=== PATIENT | male | born 1960 | race Caucasian/White ===

== ENCOUNTER 2017-03-30 11:26 | Observation (INO) ==
--- NOTE | 2017-03-30 11:58 | Emergency Department Note ---
Disposition Clinical Impression: Left facial numbness Disposition: Admitted As Inpatient Condition: Good Time of Disposition: 14:14 Neuro HPI - General Chief Complaint: ED Neuro Symptoms/Deficit Stated Complaint: Left side facial numbness x 2 days Time Seen by Provider: 03/30/17 11:35 Source: patient Limitations: no limitations Nursing Notes Reviewed: Yes Vital Signs Reviewed: Yes - History of Present Illness HPI Narrative: Mr. Garrison, 56-year-old male, presents from home for evaluation of left-sided facial tingling and paresthesias. Onset 2 days ago. They have neither improved nor worsened. This sensation was preceded by a right temporal sharp stabbing headache which lasted several minutes and spontaneously resolved. Patient does not have a history of headache or migraine. The last time he had a similar headache was prior to his CVA in 2011. PMH: CVA 2011 with sequelae of left lower extremity paresthesias and weakness. Diabetes type 2 on 2 oral anti-hyperglycemics, hypertension, hyperlipidemia, GERD Antiplatelet: Aspirin, Plavix ROS: Positive: As above Negative: Headache, changes in vision, fever, chills, neck pain, chest pains, palpitations, back pains, abdominal pains, unusual weakness, unusual numbness or tingling of his extremities, , dysphagia, dysarthria, aphasia. - Related Data Home Medications: Home Medications Medication Instructions Recorded Confirmed Clopidogrel [Plavix] 75 mg PO DAILY 07/08/15 03/30/17 Lisinopril [Zestril] 20 mg PO DAILY 07/08/15 03/30/17 Pioglitazone HCl [Actos] 45 mg PO DAILY 07/08/15 03/30/17 Simvastatin [Zocor] 40 mg PO DAILY 07/08/15 03/30/17 Nitroglycerin [Nitrostat] 0.4 mg SL AD PRN 10/20/15 03/30/17 Metoprolol [Lopressor] 12.5 mg PO BID 03/17/16 03/30/17 Diclofenac Sodium [Voltaren] 1 appl TP QID PRN 12/06/16 03/30/17 Isosorbide MONOnitrate (24 HR) 30 mg PO DAILY 12/06/16 03/30/17 [Imdur] Loratadine [Allergy Relief] 10 mg PO DAILY 12/06/16 03/30/17 Previous Rx's Medication Instructions Recorded Metformin HCl [Metformin HCl ER] 750 mg PO DAILY #0 07/08/15 Aspirin 81 mg PO DAILY 30 Days tab.chew 07/18/15 Allergies/Adverse Reactions: Allergies Allergy/AdvReac Type Severity Reaction Status Date / Time No Known Allergies Allergy Verified 03/30/17 11:33 All systems ED: reviewed and negative except as stated. Review of Systems: As Per HPI Past Medical History - Past Medical History Medical history: Reports: CVA, diabetes, GERD, hyperlipidemia, hypertension, liver disease, SVT Surgical history: Reports: other Psychiatric history: Reports: anxiety, depression - Social History Smoking Status: Former smoker Smokeless Tobacco Status: No Alcohol use: Reports: none Drug use: Reports: none Physical Exam Vital Signs Reviewed General: Patient is alert, oriented, and in no acute distress. HEENT: No facial asymmetry. Head is normocephalic and atraumatic. PERRLA, EOMI. oral mucosa moist. Trachea midline. Cardiovascular: Heart regular rate and rhythm without clicks, rubs, gallops, or murmurs. No JVD. PMI nondisplaced. Respiratory: Symmetric chest rise with good respiratory effort. Bilateral breath sounds are clear without wheezing, crackles, or rhonchi. Abdomen: Bowel sounds present normoactive x-4 quadrants. Abdomen is soft, nondistended, and nontender. No organomegaly noted. Musculoskeletal: Muscle strength 4/5 in left upper and lower extremity which is baseline per patient. Neuro: No deficit of facial motor function; no facial asymmetry. Decreased sensation on the left side of his face in the distribution of cranial nerve V1, V2, V3. No pronator drift. No lower extremity limb drift. No visual field defects. No dysphagia, dysarthria, aphasia. Psych: Patient's affect is appropriate for situation. - General Limitations: no limitations General appearance: alert, in no apparent distress Course Course Narrative: Patient presents with decreased sensation in the left half of his face includes both upper and lower face. He has no motor deficit of the face. His symptoms began 2 days ago and are preceded by an acute short duration headache which spontaneously resolved. Concerning for possible CVA. No indication at this time for code stroke. Will work patient up as a stroke otherwise. CT head shows no acute abnormalities. Patient's symptoms have not progressed during his stay in the emergency department. He agrees to admission for continued evaluation and management. Discussed the patient with the admitting hospitalist, Dr. Garcia, who agrees to accept the patient for continued evaluation and management. Vital Signs Temperature 97.4 F L 03/30/17 11:31 Pulse Rate 85 03/30/17 11:31 Respiratory Rate 18 03/30/17 11:31 Blood Pressure 142/83 03/30/17 11:31 O2 Sat by Pulse Oximetry 96 03/30/17 11:31 Temperature 98.2 F 03/30/17 14:23 Pulse Rate 65 03/30/17 14:23 Respiratory Rate 20 03/30/17 14:23 Blood Pressure 115/72 03/30/17 14:23 O2 Sat by Pulse Oximetry 97 03/30/17 14:23 Oxygen Delivery Oxygen Delivery Room Air Neuro Symptoms/Deficit - Medical Records Medical records reviewed: Yes I reviewed the patient's medical records. - Lab Data Lab results reviewed: Yes I reviewed the patient's lab results. Result diagrams: 03/30/17 11:52 03/30/17 11:52 Lab Results 03/30/17 03/30/17 03/30/17 Range/Units 11:34 11:52 11:52 WBC 6.2 (4.3-11.1) K/mcL RBC 4.67 (4.19-5.50) M/mcL Hgb 14.1 (12.9-16.9) g/dL Hct 42.6 (37.5-50.1) % MCV 91.2 (83.0-100.0) fL MCH 30.2 (28.0-33.3) pg MCHC 33.1 (31.6-35.5) g/dL RDW 13.2 (11.5-14.5) % Plt Count 230 (140-400) K/mcL MPV 9.7 (9.4-12.4) fL Immature Gran % 0.6 (0-4) % Seg Neutrophils % 54.7 % Lymphocytes % 34.6 % Monocytes % 7.9 % Eosinophils % 1.6 % Basophils % 0.6 % Neutrophils # 3.4 (1.6-8.9) K/mcL Lymphocytes # 2.2 (0.6-4.6) K/mcL Monocytes # 0.5 (0.0-1.3) K/mcL Eosinophils # 0.1 (0.0-0.6) K/mcL Basophils # 0.0 (0.0-0.2) K/mcL ESR (0-10) mm/hr PT 11.0 (9.4-12.1) Seconds INR 1.0 APTT 27.8 (26.0-36.0) Seconds Sodium (136-145) mEq/L Potassium (3.5-4.5) mEq/L Chloride (98-109) mEq/L Carbon Dioxide (19-29) mEq/L BUN (8-26) mg/dL Creatinine (0.72-1.25) mg/dL Est GFR ( Amer) (> 60) Est GFR (Non-Af Amer) (> 60) BUN/Creatinine Ratio (6-26) Glucose (70-99) mg/dL POC Glucose 108 H (58-89) Calculated Osmolality (280-300) Calcium (8.6-10.8) mg/dL Troponin I (0-0.03) ng/mL C-Reactive Protein (Less than 5) mg/L 03/30/17 03/30/17 03/30/17 Range/Units 11:52 11:52 11:52 WBC (4.3-11.1) K/mcL RBC (4.19-5.50) M/mcL Hgb (12.9-16.9) g/dL Hct (37.5-50.1) % MCV (83.0-100.0) fL MCH (28.0-33.3) pg MCHC (31.6-35.5) g/dL RDW (11.5-14.5) % Plt Count (140-400) K/mcL MPV (9.4-12.4) fL Immature Gran % (0-4) % Seg Neutrophils % % Lymphocytes % % Monocytes % % Eosinophils % % Basophils % % Neutrophils # (1.6-8.9) K/mcL Lymphocytes # (0.6-4.6) K/mcL Monocytes # (0.0-1.3) K/mcL Eosinophils # (0.0-0.6) K/mcL Basophils # (0.0-0.2) K/mcL ESR 34 H (0-10) mm/hr PT (9.4-12.1) Seconds INR APTT (26.0-36.0) Seconds Sodium 138 (136-145) mEq/L Potassium 4.4 (3.5-4.5) mEq/L Chloride 106 (98-109) mEq/L Carbon Dioxide 22 (19-29) mEq/L BUN 19 (8-26) mg/dL Creatinine 1.08 (0.72-1.25) mg/dL Est GFR ( Amer) > 60 (> 60) Est GFR (Non-Af Amer) > 60 (> 60) BUN/Creatinine Ratio 18 (6-26) Glucose 91 (70-99) mg/dL POC Glucose (58-89) Calculated Osmolality 288 (280-300) Calcium 8.9 (8.6-10.8) mg/dL Troponin I 0.01 (0-0.03) ng/mL C-Reactive Protein 2 (Less than 5) mg/L - Radiology Data Radiology results reviewed: Yes I reviewed the patient's radiology results. Head CT 03/30/17 11:44 IMPRESSION: No acute intracranial abnormality. 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 EKG results narrative: EKG dated 04/13/1711: 45 interpreted as sinus rhythm first-degree AV block, rate of 78. Prolonged ID interval of 234. Otherwise normal intervals and QRSs were 5, QT/QTC 344/377. Normal axis. Nonspecific ST-T changes. No previous EKG for comparison. NIH Stroke Scale - Level of Consciousness LOC: Alert - LOC Questions LOC Questions: Answers both correctly - LOC Commands LOC Commands: Performs both correctly - Best Gaze Best Gaze: Normal - Visual Visual: No visual loss - Facial Palsy Facial Palsy: Normal - Motor Arms Motor Arm-Left: No drift for 10 seconds Motor Arm-Right: No drift for 10 seconds - Motor Legs Motor Leg-Left: Drift, does NOT hit bed (Baseline; chronic) Motor Leg-Right: No drift for 5 seconds - Limb Ataxia Limb Ataxia: Absent of affected limb too weak to perform exam - Sensory Sensory: Mild to moderate loss, "not as sharp" - Best Language Best Language: No aphasia - Dysarthria Dysarthria: Normal - Extinction and Inattention Extinction and Inattention: Normal - NIHSS Total Score NIHSS Total Score: 2 TPA Checklist - Source Information Source: Patient - Eligibilty for IV tPA 1. LKW equal to or less than 4.5 hours be before treatment: No Attestation Statement - Attestation Attestation: I examined this patient and my medical decision-making was reviewed with the Resident Physician. I agree with the documented findings, disposition and treatment plan as described except to the extent set forth below. Patient to the ED with a chief complaint of tingling to the left side of his face. He describes it as a numbness. No weakness. History of stroke. He saw a primary provider who sent him to the ED to evaluate for stroke. Patient currently has a loop recorder. Examination patient is an NIH of 1 for sensory discrepancy in the left side of the face. Plan. Stroke workup. CT negative. Unable to perform MRI as patient has loop recorder. Admitted to medicine.
[2017-03-30 12:05] LABS: Basophils % 0.6 %; Eosinophils # 0.1 K/mcL (0.0-0.6); Eosinophils % 1.6 %; Hematocrit 42.6 % (37.5-50.1); Hemoglobin 14.1 g/dL (12.9-16.9); Immature Granulocytes % 0.6 % (0-4); Lymphocytes # 2.2 K/mcL (0.6-4.6); Lymphocytes % 34.6 %; Mean Corpuscular HGB Conc 33.1 g/dL (31.6-35.5); Mean Corpuscular Hemoglobin 30.2 pg (28.0-33.3); Mean Corpuscular Volume 91.2 fL (83.0-100.0); Mean Platelet Volume 9.7 fL (9.4-12.4); Monocytes # 0.5 K/mcL (0.0-1.3); Monocytes % 7.9 %; Neutrophils # 3.4 K/mcL (1.6-8.9); Platelet Count 230 K/mcL (140-400); Red Blood Count 4.67 M/mcL (4.19-5.50); Red Cell Distribution Width 13.2 % (11.5-14.5); Segmented Neutrophils % 54.7 %
[2017-03-30 12:11] LABS: Activated Partial Thrombo Time 27.8 Seconds (26.0-36.0)
[2017-03-30 12:18] LABS: BUN/Creatinine Ratio 18 (6-26); Blood Urea Nitrogen 19 mg/dL (8-26); Calcium 8.9 mg/dL (8.6-10.8); Carbon Dioxide 22 mEq/L (19-29); Chloride 106 mEq/L (98-109); Glucose 91 mg/dL (70-99); Osmolality,Calculated 288 (280-300); Potassium 4.4 mEq/L (3.5-4.5); Sodium 138 mEq/L (136-145); eGFR For African Americans > 60 (> 60); eGFR For Non-African Americans > 60 (> 60)
[2017-03-30 14:03] LABS: C-Reactive Protein 2 mg/L (Less than 5)
[2017-03-30] MEDS ORDERED: Acetaminophen 325 MG TABLET PO PRN (14:42)
[2017-03-30] MEDS ORDERED: *HR* HYDROcodone/Acet 5/325 mg TABLET PO PRN (14:42)
[2017-03-30] MEDS ORDERED: Naloxone 0.4 MG/ML INJ IVP PRN (14:42)
[2017-03-30] MEDS ORDERED: Ondansetron 4 MG/2 ML VIAL IVP PRN (14:42)
[2017-03-30] MEDS ORDERED: Nitroglycerin 0.4 MG TAB.SUBL SL PRN (14:47)
[2017-03-30] MEDS ORDERED: DICLOFENAC TP PRN (14:47)
[2017-03-30] MEDS ORDERED: Dextrose Gel 15 GM PO PRN ×2 (14:52)
[2017-03-30] MEDS ORDERED: D5% in Water 1,000 ML IVC PRN (14:52)
[2017-03-30] MEDS ORDERED: *HR* Dextrose 50 % in Water (Syg) 50 ML SYRINGE IVP PRN (14:52)
--- NOTE | 2017-03-30 15:13 | Internal Med History&Physical ---
Date of Encounter: 03/30/17 Time of Encounter: 14:00 Assessment and Plan (1) Left facial numbness Current visit: Yes Status: Acute Acute left-sided facial numbness that began two days ago following a right temporal headache that lasted approximately three minutes and resolved, leaving left-sided facial numbness. On exam, pt. has no focal or motor deficits of the face, no speech deficit, or headache. NIHSS scale. Padding for bed rails ordered. Dysphagia screen. NPO status until dysphagia screen passed. CT of the head shows no acute intracranial abnormality. MRI of the head/brain without contrast ordered assess for infarct/ischemia. CRP 2. ESR 34. Will hold HTN medications to allow for permissive HTN. Will resume HTN medications based on MRI results. Pt. is at high risk for CVA/TIA based on current sx, previous CVA hx, and risk factors. Observation. (2) Chest pressure Current visit: Yes Status: Acute Acute chest pressure that pt. describes as centralized in chest and non- radiating for the past day. Previous echocardiogram was 1.5 years ago along with stress test. Echocardiogram ordered. Initial troponin 0.01. Will trend x2. Continuous cardiac telemetry. Pt. to be observed closely for signs of cardiac and/or respiratory distress. (3) HTN (hypertension) Current visit: Yes Status: Chronic Hx of chronic HTN. Monitor pt. and VS. Will hold pts. Imdur, lisinopril, and metoprolol to allow for permissive hypertension. Will resume HTN meds based on MRI results. Qualifiers: Hypertension type: essential hypertension Qualified Code(s): I10 - Essential (primary) hypertension (4) HLD (hyperlipidemia) Current visit: Yes Status: Chronic Hx of chronic HLD. Lipid panel in a.m. labs. Continue pts. Zocor. Qualifiers: Hyperlipidemia type: pure hypercholesterolemia Qualified Code(s): E78.00 - Pure hypercholesterolemia, unspecified; E78.0 - Pure hypercholesterolemia (5) GERD (gastroesophageal reflux disease) Current visit: Yes Status: Chronic Hx of chronic GERD. IVP Zofran Q6 PRN. PO Prilosec 40 mg daily. 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 Stable. PT/ OT consults ordered to assess pt. for ambulation strength and stability. (7) Diabetes mellitus type 2, noninsulin dependent Current visit: Yes Status: Chronic Hx of chronic diabetes controlled w/oral anti-hyperglycemic medications. Will hold oral medications and administer low-dose correction sliding scale insulin w /hypoglycemic protocol. BG checks ACHS. A1c in a.m. labs. (8) History of CVA (cerebrovascular accident) Current visit: Yes Status: Chronic Hx of CVA in 2012 which resulted in left-sided weakness/numbness. On exam, left side UE and LE 4/5. No other focal deficits. (9) DVT prophylaxis Current visit: Yes Status: Acute Lovenox 40 mg 0600 for DVT prophylaxis. Monitor pt. for signs of bleeding. Internal Medicine - H&P: HPI Chief complaint: Left-sided facial numbness Admitted From: Emergency Dept Plans for Post Hospital Care: Home History of present illness: Mr. Garrison is a 56 year old male with medical hx of previous CVA in 2012, diabetes controlled with oral anti-hyperglycemics, GERD, HLD, HTN, and SVT presents from the ED with chief complaint of left-sided facial numbness for the past two days. Pt. states he experienced a right-sided temporal headache for approximately 3 minutes which resolved and numbness came up his legs to his head (which also resolved) leaving only his left face numb. States sx similar to 2012 CVA. Pt. has residual mild lt-sided weakness from CVA in 2012. Pt. also reports non-radiating chest pressure in his central chest for the past day. Pt. denies recent illness, nausea, vomiting, fever, chills, diarrhea, constipation, abdominal pain, palpitations, cough, changes in vision, unusual bleeding, neck pain, back pain, dizziness, lightheadedness, presyncope, or syncope. Past Med Surg Social Fam HX - Past Medical History Source: patient, old records reviewed Medical history: CVA, diabetes, GERD, hyperlipidemia, hypertension, SVT Psychiatric history: no psych history - Past Surgical History Surgical History: angioplasty/stent (No stents placed) - Social History Smoking Status: Former smoker Packs per day: 2 PPD - Reports quitting in 2012 after CVA Smokeless Tobacco Status: No Alcohol use: none Drug use: none Current living situation: Home, With Family Activity Level: Independent ambulation Recent Out of Country Travel Within the Last 8 Weeks: No Exposure or Possible Exposure to Illness During Travel: No - Family History Father Adopted: No Race: Family Member Ethnicity: Non- Living Status: Age at : 78 Cause of : CHF Hx Family Cardiac Disorders: Yes (CHF, CAD, HTN, [place]) Mother Race: Family Member Ethnicity: Non- Living Status: (85) Age at : 85 Cause of : [place] Hx Family Cardiac Disorders: Yes ([place], CAD) Brother Race: Family Member Ethnicity: Non- Living Status: Age at : 32 Cause of : Brain tumors Hx Family Cancer: Yes (Brain tumors) Sister Race: Family Member Ethnicity: Non- Living Status: Still Living Hx Family Endocrine Disorder: Yes (DM) Internal Medicine - H&P: Meds Clopidogrel [Plavix] 75 mg PO DAILY 07/08/15 [History] Lisinopril [Zestril] 20 mg PO DAILY 07/08/15 [History] Metformin HCl [Metformin HCl ER] 750 mg PO DAILY #0 07/08/15 [Rx] Pioglitazone HCl [Actos] 45 mg PO DAILY 07/08/15 [History] Simvastatin [Zocor] 40 mg PO DAILY 07/08/15 [History] Aspirin 81 mg PO DAILY 30 Days tab.chew 07/18/15 [Rx] Nitroglycerin [Nitrostat] 0.4 mg SL AD PRN 10/20/15 [History] Metoprolol [Lopressor] 12.5 mg PO BID 03/17/16 [History] Diclofenac Sodium [Voltaren] 1 appl TP QID PRN 12/06/16 [History] Isosorbide MONOnitrate (24 HR) [Imdur] 30 mg PO DAILY 12/06/16 [History] Loratadine [Allergy Relief] 10 mg PO DAILY 12/06/16 [History] 3 Allergy/AdvReac Type Severity Reaction Status Date / Time No Known Allergies Allergy Verified 03/30/17 11:33 All Systems PM: A 10-system review of systems was performed and is negative for pertinent findings except as documented above in the HPI. - Constitutional Constitutional: as per HPI, weakness (Residual lt-sided weakness from 2012 CVA) , no chills, no fever(s), no night sweats - EENT Eyes: no change in vision, no discharge, no pain, no photophobia Ears: no ear discharge, no ear pain, no tinnitus Nose, mouth and throat: no dysphagia, no nasal discharge, no neck pain, no sore throat - Breasts Breasts: as per HPI - Cardiovascular Cardiovascular ROS IM: chest pain (Chest pressure in central chest w/o radiation ), no diaphoresis, no dyspnea, no lightheadedness, no palpitations, no syncope - Respiratory Respiratory: no cough, no dyspnea, no wheezing, no excessive phlegm production - Gastrointestinal Gastrointestinal: no abdominal pain, no diarrhea, no hematemesis, no hematochezia, no melena, no nausea, no vomiting - Genitourinary Genitourinary ROS male: as per HPI - Musculoskeletal Musculoskeletal ROS IM: as per HPI, numbness (Left facial numbness), no tingling - Integumentary Integumentary IM: no rash, no unusual bruising - Neurological Neurological ROS: as per HPI, numbness (Lt-sided facial numbness), no confusion , no convulsions, no focal weakness, no tingling, no tremor(s) - Psychiatric Psychiatric: as per HPI - Endocrine Endocrine IM: as per HPI - Hematologic/Lymphatic Hematologic/Lymphatic: no easy bruising - Allergic/Immunologic Allergic/Immunologic: as per HPI - Constitutional Vitals: Temp Pulse Resp BP Pulse Ox 98.2 F 65 20 115/72 97 03/30/17 14:23 03/30/17 14:23 03/30/17 14:23 03/30/17 14:23 03/30/17 14:23 General appearance: Present: cooperative, A&O X 3, morbidly obese, pleasant, no acute distress, answers questions appropriately - Head Head exam: Present: atraumatic, normal inspection, normocephalic - Eye Eye exam: Present: PERRL, conjuntiva pink, sclera anicteric Pupils: Present: PERRL - ENT ENT exam: Present: normal exam, normal external ear exam - Neck Neck exam general surgery: Present: normal inspection, supple, trachea midline. Absent: lymphadenopathy - Respiratory Respiratory exam: Present: CTAB. Absent: accessory muscle use, rales, rhonchi, wheezes - Cardiovascular Cardiovascular exam: Present: RRR, +S1, +S2. Absent: diastolic murmur, gallop, rubs, systolic murmur - GI/Abdominal GI/Abdominal exam: Present: normal bowel sounds, soft, no peritoneal signs. Absent: distended, tenderness - Rectal Rectal exam: Present: deferred - Additional comments: exam deferred. - Extremities Exam Extremities exam: Present: warm, radial pulses palpable and symmetrical. Absent : calf tenderness, cyanotic, pedal edema - Back Exam Back exam: Present: normal inspection - Neurological Exam Neurological exam: Present: alert, CN II-XII intact, oriented X3, no focal deficits. Absent: pronater drift, facial droop, speech deficit - Psychiatric Psychiatric exam: Present: normal affect, normal mood - Skin Skin exam: Present: dry, intact Internal Med - H&P Results - Labs CBC & Chem 7: 03/30/17 11:52 03/30/17 11:52 - EKG Data EKG shows normal: sinus rhythm - EKG Data Prior EKG available for review: no EKG comments: 03/30/17 15:20 EKG dated 03/30/17 shows sinus rhythm with first-degree AV block and low QRS voltage in precordial leads. Abnormal ECG. - Diagnostic Studies CT scan - head Additional comments: Impressions Head CT 03/30/17 11:44 IMPRESSION: No acute intracranial abnormality. 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
[2017-03-30] MEDS: Insulin LISPRO 300 UNITS/3 ML VIAL SQ SCH ×2 (16:08→20:00)
[2017-03-31 01:31] LABS: Basophils % 0.6 %; Eosinophils # 0.1 K/mcL (0.0-0.6); Eosinophils % 2.1 %; Hematocrit 41.6 % (37.5-50.1); Immature Granulocytes % 0.8 % (0-4); Lymphocytes # 2.4 K/mcL (0.6-4.6); Lymphocytes % 38.4 %; Mean Corpuscular HGB Conc 33.7 g/dL (31.6-35.5); Mean Corpuscular Hemoglobin 30.4 pg (28.0-33.3); Mean Corpuscular Volume 90.4 fL (83.0-100.0); Mean Platelet Volume 9.6 fL (9.4-12.4); Monocytes # 0.4 K/mcL (0.0-1.3); Monocytes % 7.1 %; Neutrophils # 3.2 K/mcL (1.6-8.9); Platelet Count 196 K/mcL (140-400); Red Cell Distribution Width 13.2 % (11.5-14.5)
[2017-03-31 01:35] LABS: Prothrombin Time 10.9 Seconds (9.4-12.1)
[2017-03-31 01:37] LABS: Activated Partial Thrombo Time 25.4 Seconds (26.0-36.0)
[2017-03-31 01:44] LABS: Hemoglobin A1C 5.7 %
[2017-03-31 01:51] LABS: Alanine Aminotransferase 18 Units/L (0-55); Albumin 3.3 g/dL (3.5-5.0); Alkaline Phosphatase 50 Units/L (38-126); Aspartate Amino Transferase 15 Units/L (5-34); BUN/Creatinine Ratio 17 (6-26); Bilirubin,Total 1.1 mg/dL (0.2-1.2); Blood Urea Nitrogen 17 mg/dL (8-26); Calcium 8.7 mg/dL (8.6-10.8); Carbon Dioxide 21 mEq/L (19-29); Chloride 104 mEq/L (98-109); Chol/HDL Ratio 3.5 (0-4.9); Cholesterol 156 mg/dL (< 200); Globulin 3.3 g/dL (2.4-3.5); Glucose 96 mg/dL (70-99); HDL Cholesterol 45 mg/dL (40-59); LDL Cholesterol,Calculated 81 mg/dL (0-99); Magnesium 1.5 mg/dL (1.6-2.6); Osmolality,Calculated 285 (280-300); Potassium 4.1 mEq/L (3.5-4.5); Sodium 137 mEq/L (136-145); Total Protein 6.6 g/dL (6.0-8.3); Triglycerides 152 mg/dL (< 150); eGFR For African Americans > 60 (> 60); eGFR For Non-African Americans > 60 (> 60)
[2017-03-31] MEDS: *HR* Enoxaparin 40 MG/0.4 ML SYRINGE SQ SCH (05:55)
[2017-03-31] MEDS: Insulin LISPRO 300 UNITS/3 ML VIAL SQ SCH ×4 (07:56→21:29)
[2017-03-31] MEDS: Aspirin 81 MG TAB.CHEW PO SCH (08:53)
[2017-03-31] MEDS: Loratadine 10 MG TABLET PO SCH (08:53)
--- NOTE | 2017-03-31 10:18 | Event Note ---
Date of Encounter: 03/30/17 Time of Encounter: 18:00 Discussed with JETT and agree with assessment and plan. Workup for CVA rule out with MRI in addition to ACS rule out for chest pain
--- NOTE | 2017-03-31 14:16 | Discharge Summary ---
Date of Encounter: 03/31/17 Time of Encounter: 09:40 - Discharge Diagnosis (1) Trigeminal neuropathy Priority: Primary Status: Acute Comments: Acute left-sided facial numbness that began approximately 1 day after right temporal headache lasting approximately 3 minutes. Onset of headache 3 days ago. On exam, pt has no focal or motor deficits of the face, no speech deficit, or headache. Face is symmetrical, reports decreased sensation to left face. HE denies difficulty swallowing, speech is clear, he has no difficulty with speech or chewing. He denies facial pain or difficulty with vision or hearing. CT of the head shows no acute intracranial abnormality. MRI negative for acute, shows remote infarct. Pt was seen by neurology, no recommendations other than ASA daily, which pt is already taking. Pt will follow up with neurology in the office. Head CT 03/30/17 11:44 IMPRESSION: No acute intracranial abnormality. Old right COOKER SULFATE distribution infarct D/ / González Stein MD / González Stein MD Interpreting Provider: González Stein MD Brain MRI 03/30/17 13:32 IMPRESSION: Remote infarct in the right posterior medial temporal and occipital regions with surrounding gliosis and associated hemosiderin. Patchy small vessel ischemic changes bilaterally No acute infarct. D/ / Alejandro Tejada / Alejandro Tejada Interpreting Provider: Alejandro Tejada (2) History of CVA (cerebrovascular accident) Priority: Secondary Status: Chronic Comments: Patient with prior history of CVA in 2011 which resulted in left-sided weakness/ numbness. Patient reports chronic left lower extremity numbness and weakness. His gait is steady. Bilateral upper and lower extremity strength is 4/5. Patient has no other deficits. Continue aspirin, Plavix, Zocor. (3) Diabetes mellitus type 2, noninsulin dependent Priority: Secondary Status: Chronic Comments: Hemoglobin A1c is 5.7. Continue home medications. (4) HTN (hypertension) Priority: Secondary Status: Chronic Comments: Blood pressure has been well controlled. Continue home medications. Qualifiers: Hypertension type: essential hypertension Qualified Code(s): I10 - Essential (primary) hypertension (5) HLD (hyperlipidemia) Priority: Secondary Status: Chronic Comments: Lipid panel within normal limits. Continue Zocor. Qualifiers: Hyperlipidemia type: pure hypercholesterolemia Qualified Code(s): E78.00 - Pure hypercholesterolemia, unspecified; E78.0 - Pure hypercholesterolemia (6) DVT prophylaxis Priority: Secondary Status: Acute Comments: Lovenox SQ - Discharge Medications Home Medications: Clopidogrel [Plavix] 75 mg PO DAILY 07/08/15 [History] Lisinopril [Zestril] 20 mg PO DAILY 07/08/15 [History] Metformin HCl [Metformin HCl ER] 750 mg PO DAILY #0 07/08/15 [Rx] Pioglitazone HCl [Actos] 45 mg PO DAILY 07/08/15 [History] Simvastatin [Zocor] 40 mg PO DAILY 07/08/15 [History] Aspirin 81 mg PO DAILY 30 Days tab.chew 07/18/15 [Rx] Nitroglycerin [Nitrostat] 0.4 mg SL AD PRN 10/20/15 [History] Metoprolol [Lopressor] 12.5 mg PO BID 03/17/16 [History] Diclofenac Sodium [Voltaren] 1 appl TP QID PRN 12/06/16 [History] Isosorbide MONOnitrate (24 HR) [Imdur] 30 mg PO DAILY 12/06/16 [History] Loratadine [Allergy Relief] 10 mg PO DAILY 12/06/16 [History] Allergies/Adverse Reactions: 3 Allergy/AdvReac Type Severity Reaction Status Date / Time No Known Allergies Allergy Verified 03/30/17 11:33 Procedures/tests Complete & Pending: Procedures Performed prior 72 hours Category Date Time Status EV echocardiogram Routine Y 03/30/17 14:57 Completed Date of admission: 03/30/17 13:34 Primary care physician: Jeannette Wong CNP Consults: 03/30/17 14:45 Consult to Putty Tinter Maker [CONS] Routine Reason for SW Consult: Please assess patient for possible home needs for post -discharge planning. 03/30/17 14:46 Consult to Occupational Therapy [CONS] Routine Comment: Evaluate, develop and implement POC Reason for Consult: Patient reports residual left-sided weakness in UE and LE from CVA in 2011. Please assess pt. for strength, stability, safety, ambulation, and possible assistive needs for post-discharge planning. 03/30/17 14:47 Consult to Physical Therapy [CONS] Routine Comment: Evaluate, develop and implement POC Reason for Consult: Patient reports residual left-sided weakness in UE and LE from CVA in 2011. Please assess pt. for strength, stability, safety, ambulation, and possible assistive needs for post-discharge planning. 03/31/17 12:40 Consult to Neurology [CONS] Routine Consulting Provider: [facility] Reason for Consult: left facial numnbess Time Notified: 12:41 Call Completed: Yes Discharging clinician: Chloe Mancilla Anticipated date of discharge: 03/31/17 - Patient Status Disposition: Home, Self-Care Condition: Good Functional capacity at discharge: independent ambulation Overall status at discharge: patient is progressing back to baseline - Discharge Instructions Follow Up With: Jeannette Wong CNP [Primary Care Provider] - Additional Instructions: Please follow-up with neurology as scheduled. Please follow-up with her primary care provider. Please take your medications as directed. Return to your normal activities as tolerated Return to your normal diet as tolerated Return to the emergency department as needed for any other problems or concerns , or if her symptoms return or worsen - Diet and Activity Activity: increase activity as tolerated Diet: advance to your usual diet Hospital course: Mr. Garrison is a 56 year old male with prior history of CVA, hyperlipidemia, hypertension, GERD, diabetes. Patient was seen for right temporal headache 3 days ago. Approximately 1 day later he began having left facial numbness. Patient describes it as someone drawing a line down the center of his face. He denies pain. There is no neurological deficit to that side of the face. He denies loss of hearing or vision or change in vision or hearing. He denies a metallic taste. All facial movements are symmetrical. MRI and CT head are negative. Pt has been seen by neurology who recommends MRI of cspine and carotid dopplers. Pt will follow up with neurology in the office. - Time Spent with Patient Total time spent providing and/or coordinating discharge services: Less than 30 minutes - Constitutional Vitals: Temp Pulse Resp BP Pulse Ox 97.7 F 65 16 115/71 97 03/31/17 11:39 03/31/17 11:39 03/31/17 11:39 03/31/17 11:39 03/31/17 11:39 General appearance: Present: cooperative, A&O X 3, morbidly obese, pleasant, no acute distress, answers questions appropriately - Head Head exam: Present: atraumatic, normal inspection, normocephalic - Eye Eye exam: Present: EOMI, normal appearance, PERRL, conjuntiva pink, sclera anicteric. Absent: nystagmus - Neck Neck exam general surgery: Present: full ROM, normal inspection, supple, trachea midline. Absent: lymphadenopathy, tenderness, nuchal rigidity - Respiratory Respiratory exam: Present: CTAB. Absent: accessory muscle use, chest wall tenderness, decreased breath sounds, rales, respiratory distress, rhonchi, wheezes - Cardiovascular Cardiovascular exam: Present: RRR, +S1, +S2. Absent: diastolic murmur, gallop, rubs, systolic murmur - GI/Abdominal GI/Abdominal exam: Present: normal bowel sounds, soft, no peritoneal signs. Absent: distended, hepatomegaly, tenderness - Extremities Exam Extremities exam: Present: normal capillary refill, normal inspection, warm, radial pulses palpable and symmetrical. Absent: calf tenderness, cyanotic, pedal edema, tenderness - Neurological Exam Neurological exam: Present: alert, CN II-XII intact, normal gait, oriented X3, no focal deficits, strengths equal and symetr throughout. Absent: abnormal gait , altered, motor sensory deficit, pronater drift, facial droop, speech deficit - Skin Skin exam: Present: dry, intact, normal color, warm. Absent: rash
--- NOTE | 2017-03-31 18:34 | Electrocardiograph Report ---
[place] [id number] Test Date: 2017-03-30 Pat Name: Alejandro Garrison Department: 103 Room: 3B38 Gender: M [employer] Car [employer]: AM : 1960 Requested By: Zhen Grijalva Order Number: [id number] Reading MD: Rubens Forrest DO Measurements Intervals [place] Rate: 78 P: 38 [place]: 234 QRS: 15 QRSD: 105 T: 22 QT: 344 QTc: 377 Interpretive Statements SINUS RHYTHM WITH FIRST DEGREE AV BLOCK Electronically Signed On 03-31-2017 18:33:16 EST by Rubens Forrest DO
--- NOTE | 2017-03-31 18:41 | Neurology - Consult Note ---
Date of Encounter: 03/31/17 Time of Encounter: 18:36 Assessment and Plan (1) Left facial numbness Current Visit: Yes Status: Acute No evidence of intracranial abnormality. The facial numbness is at the left face but associated with left arm numbness as well therefore may suggest a type of cervical spinal cord pathology including cervical disc disease or cervical radiculopathy, since MRI of brain showed no acute infarct to explain his clinical symptoms. Will recommend MRI of cervical spine without contrast to assess cervical disc disease with radiculopathy History of Present Illness Chief complaint: left facial and arm numbness HPI: Mr. Garrison is a 56 year old male with PMH significant for DM, HTN, obesity, history of occipital infarct who developed acute onset of right temporal headache followed by loss of sensation to his face and arm. Initially he developed acute onset of stabbing at the right temporal region lasted about 30 seconds and the this was followed by loss of sensation to his left face in a strictly midline fashion. The numbness also involve the left arm and shoulder although the story changed form time to time. Now he still not be able to feel the left face and left arm. No other neurological discomforts, specifically, no focal weakness. ESR was slightly elevated at 34. CT of head showed no acute intracranial abnormality. MRI of brain showed no acute infarct, but remote right occipital infarct. Past Med Surg Social Fam HX - Past Medical History Medical history: CVA, diabetes, GERD, hyperlipidemia, hypertension, liver disease, SVT Psychiatric history: anxiety, depression - Past Surgical History Surgical History: other - Social History Smoking Status: Former smoker Packs per day: 2 PPD - Reports quitting in 2011 after CVA Smokeless Tobacco Status: No Alcohol use: none Drug use: none - Family History Mother Race: Family Member Ethnicity: Non- Living Status: (85) Age at : 85 Cause of : [place] Hx Family Cardiac Disorders: Yes ([place], CAD) Brother Race: Family Member Ethnicity: Non- Living Status: Age at : 32 Cause of : Brain tumors Hx Family Cancer: Yes (Brain tumors) Sister Race: Family Member Ethnicity: Non- Living Status: Still Living Hx Family Endocrine Disorder: Yes (DM) Father Adopted: No Race: Family Member Ethnicity: Non- Living Status: Age at : 78 Cause of : CHF Hx Family Cardiac Disorders: Yes (CHF, CAD, HTN, [place]) Hx Family Respiratory Disorders: No Hx Family Cancer: No Hx Family GI Disorders: No Hx Family Endocrine Disorder: No Hx Family Neuromuscular Disorders: No Hx Family Neurologic Disorders: No Hx Family HEENT Disorders: No Hx Family Autoimmune Disorders: No Medications and Allergies Clopidogrel [Plavix] 75 mg PO DAILY 07/08/15 [History] Lisinopril [Zestril] 20 mg PO DAILY 07/08/15 [History] Metformin HCl [Metformin HCl ER] 750 mg PO DAILY #0 07/08/15 [Rx] Pioglitazone HCl [Actos] 45 mg PO DAILY 07/08/15 [History] Simvastatin [Zocor] 40 mg PO DAILY 07/08/15 [History] Aspirin 81 mg PO DAILY 30 Days tab.chew 07/18/15 [Rx] Nitroglycerin [Nitrostat] 0.4 mg SL AD PRN 10/20/15 [History] Metoprolol [Lopressor] 12.5 mg PO BID 03/17/16 [History] Diclofenac Sodium [Voltaren] 1 appl TP QID PRN 12/06/16 [History] Isosorbide MONOnitrate (24 HR) [Imdur] 30 mg PO DAILY 12/06/16 [History] Loratadine [Allergy Relief] 10 mg PO DAILY 12/06/16 [History] 3 Allergy/AdvReac Type Severity Reaction Status Date / Time No Known Allergies Allergy Verified 03/30/17 11:33 All Systems: A 10-system review of systems was performed and is negative for pertinent findings except as documented above in the HPI. Physical Examination - Vital Signs Vital Signs: Initial Vital Signs Temp Pulse Resp BP Pulse Ox 97.4 F L 85 18 142/83 96 03/30/17 11:31 03/30/17 11:31 03/30/17 11:31 03/30/17 11:31 03/30/17 11:31 - Constitutional General appearance: comfortable - Neurologic Sensorimotor examination: other (reduced pinprick and touch to the let face and left neck as well as left arm and forearm) Detailed motor examination: full strength in all major muscle groups Motor examination - right side: 5: deltoids, biceps, triceps, wrist flexion, wrist extension, cad specialist, hip flexors, tibialis Anterior, quadriceps, toe extension (EHL), plantarflexion Motor examination - left side: 5/5: deltoids, biceps, triceps, wrist flexion, wrist extension, hip flexors, cad specialist, quadriceps, tibialis Anterior, toe extension (EHL), plantarflexion Detailed sensory examination: other (Reduced pinprick/rouch to the left face and left arm neck and shoulder) Reflexes: Biceps: 2+, Triceps: 2+, Brachioradialis: 2+, Patella: 2+, Achilles: 2 + Mental Status Examination: awake, alert, oriented to person, oriented to place, oriented to time, follows commands appropriately, answers questions appropriately, no agnosia, no aphasia, no aproxia Cranial nerve examination: PERRL, EOMI, visual parra intact, corneal reflexes brisk symmetrically, sensory to face intact, mastication intact, no facial asymmetry is present, no dysarthria, hearing is intact symmetrically, soft palate elevates bilaterally upon phonation, gag reflex intact, flexes SCM and trapezius muscles symmetrically with full power, tongue protrudes midline, no atrophy or facial fasiculations present Results - Laboratory Findings CBC and BMP: 03/31/17 01:19 03/31/17 01:19 Abnormal lab findings: Abnormal lab results ESR 34 mm/hr (0-10) H 03/30/17 11:52 APTT 25.4 Seconds (26.0-36.0) L 03/31/17 01:19 POC Glucose 94 (58-89) H 03/31/17 11:50 Hemoglobin A1c 5.7 % (-5.6) H 03/31/17 01:19 Magnesium 1.5 mg/dL (1.6-2.6) L 03/31/17 01:19 Albumin 3.3 g/dL (3.5-5.0) L 03/31/17 01:19 Albumin/Globulin Ratio 1.0 (1.1-2.2) L 03/31/17 01:19 Triglycerides 152 mg/dL (< 150) H 03/31/17 01:19 Consult Discharge Plan - Plan Additional Instructions: Please follow-up with neurology as scheduled. Please follow-up with her primary care provider. Please take your medications as directed. Return to your normal activities as tolerated Return to your normal diet as tolerated Return to the emergency department as needed for any other problems or concerns , or if her symptoms return or worsen Referrals: Jeannette Wong, ENVIRONMENTAL COMPLIANCE OFFICER [Primary Care Provider] -
[2017-04-01] MEDS: *HR* Enoxaparin 40 MG/0.4 ML SYRINGE SQ SCH (05:07)
[2017-04-01 05:09] LABS: Basophils % 0.5 %; Eosinophils # 0.1 K/mcL (0.0-0.6); Eosinophils % 1.5 %; Hemoglobin 14.9 g/dL (12.9-16.9); Immature Granulocytes % 0.5 % (0-4); Lymphocytes # 2.1 K/mcL (0.6-4.6); Lymphocytes % 30.9 %; Mean Corpuscular HGB Conc 33.1 g/dL (31.6-35.5); Mean Corpuscular Hemoglobin 29.9 pg (28.0-33.3); Mean Corpuscular Volume 90.4 fL (83.0-100.0); Mean Platelet Volume 9.6 fL (9.4-12.4); Monocytes # 0.5 K/mcL (0.0-1.3); Monocytes % 7.8 %; Neutrophils # 3.9 K/mcL (1.6-8.9); Platelet Count 224 K/mcL (140-400); Red Blood Count 4.98 M/mcL (4.19-5.50); Segmented Neutrophils % 58.8 %
[2017-04-01 05:27] LABS: Alanine Aminotransferase 20 Units/L (0-55); Albumin 3.5 g/dL (3.5-5.0); Alkaline Phosphatase 53 Units/L (38-126); Aspartate Amino Transferase 17 Units/L (5-34); BUN/Creatinine Ratio 17 (6-26); Bilirubin,Total 1.2 mg/dL (0.2-1.2); Blood Urea Nitrogen 19 mg/dL (8-26); Carbon Dioxide 23 mEq/L (19-29); Chloride 103 mEq/L (98-109); Globulin 3.5 g/dL (2.4-3.5); Glucose 110 mg/dL (70-99); Osmolality,Calculated 291 (280-300); Potassium 4.1 mEq/L (3.5-4.5); Sodium 139 mEq/L (136-145); eGFR For African Americans > 60 (> 60); eGFR For Non-African Americans > 60 (> 60)
[2017-04-01] MEDS: Insulin LISPRO 300 UNITS/3 ML VIAL SQ SCH ×2 (08:05→11:47)
[2017-04-01] MEDS: Loratadine 10 MG TABLET PO SCH (09:03)
[2017-04-01] MEDS: Aspirin 81 MG TAB.CHEW PO SCH (09:03)
[2017-04-01 15:58] VITALS: BP 142/89
--- NOTE | 2017-04-01 16:20 | Internal Med Progress Note ---
Date of Encounter: 04/01/17 Time of Encounter: 08:50 - Assessment and plan (1) Trigeminal neuropathy Current Visit: Yes Status: Suspected Assessment and plan: Acute left-sided facial numbness that began approximately 1 day after right temporal headache lasting approximately 3 minutes. Onset of headache 3 days ago. On exam, pt has no focal or motor deficits of the face, no speech deficit, or headache. Face is symmetrical, reports decreased sensation to left face. He denies difficulty swallowing, speech is clear, he has no difficulty with speech or chewing. He denies facial pain or difficulty with vision or hearing. Left facial numbness and left arm numbness have improved somewhat today, though they still remain. Strength are equal bilaterally. Face is symmetrical. CT of the head shows no acute intracranial abnormality. MRI negative for acute, shows remote infarct. Pt was seen by neurology, no recommendations other than ASA daily, which pt is already taking. Pt will follow up with neurology in the office. Patient donaldson so follow up with orthopedics for cervical radiculopathy. This also could be contributing to patient's numbness. Head CT 03/30/17 11:44 IMPRESSION: No acute intracranial abnormality. Old right SURFACE MINER distribution infarct D/ / González Stein MD / González Stein MD Interpreting Provider: González Stein MD Brain MRI 03/30/17 13:32 IMPRESSION: Remote infarct in the right posterior medial temporal and occipital regions with surrounding gliosis and associated hemosiderin. Patchy small vessel ischemic changes bilaterally No acute infarct. D/ / Alejandro Tejada / Alejandro Tejada Interpreting Provider: Alejandro Tejada (2) History of CVA (cerebrovascular accident) Current Visit: Yes Status: Chronic Assessment and plan: Patient with prior history of CVA in 2011 which resulted in left-sided weakness/ numbness. Patient reports chronic left lower extremity numbness and weakness. His gait is steady. Bilateral upper and lower extremity strength is 4/5. Patient has no other deficits. Continue aspirin, Plavix, Zocor. (3) Diabetes mellitus type 2, noninsulin dependent Current Visit: Yes Status: Chronic Assessment and plan: Hemoglobin A1c is 5.7. Continue home medications (4) HTN (hypertension) Current Visit: Yes Status: Chronic Assessment and plan: Well controlled. Continue home medications. Qualifiers: Hypertension type: essential hypertension Qualified Code(s): I10 - Essential (primary) hypertension (5) HLD (hyperlipidemia) Current Visit: Yes Status: Chronic Assessment and plan: Chronic. Continue home medications. Qualifiers: Hyperlipidemia type: pure hypercholesterolemia Qualified Code(s): E78.00 - Pure hypercholesterolemia, unspecified; E78.0 - Pure hypercholesterolemia (6) DVT prophylaxis Current Visit: Yes Status: Acute Assessment and plan: Lovenox subcutaneous. Patient has been ambulatory in his room, as well as on the unit. (7) Cervical radiculopathy Current Visit: Yes Status: Acute Assessment and plan: Per CT. Patient will follow-up with orthopedics for management. Cervical Spine MRI 03/31/17 15:06 IMPRESSION: Multilevel degenerative disc disease throughout the cervical spine. See above for details of each level D/ / Alejandro Tejada / Alejandro Tejada Interpreting Provider: Alejandro Tejada - Time Spent With Patient less than 15 minutes - Subjective Interval history: Pt was seen and assessed at bedside at 8:50 AM. He is alert, awake, oriented and pleasant. He denies headache, blurred vision, dizziness, abdominal pain, fever or chills. He denies dizziness or vision changes. He reports that left facial numbness and left arm numbness has improved somewhat, but still remains. He was seen by neurology again today, he will need to follow up with orthopedics for cervical radiculopathy. - Constitutional Vitals: Temp Pulse Resp BP Pulse Ox 97.9 F 88 17 142/89 92 04/01/17 15:56 04/01/17 15:56 04/01/17 15:56 04/01/17 15:56 04/01/17 15:56 General appearance: Present: cooperative, A&O X 3, morbidly obese, pleasant, no acute distress, answers questions appropriately - Head Head exam: Present: atraumatic, normal inspection, normocephalic - Eye Eye exam: Present: normal appearance, conjuntiva pink, sclera anicteric - Neck Neck exam general surgery: Present: normal inspection, supple, trachea midline. Absent: lymphadenopathy, tenderness - Respiratory Respiratory exam: Present: CTAB. Absent: accessory muscle use, rales, rhonchi, wheezes - Cardiovascular Cardiovascular exam: Present: RRR, +S1, +S2. Absent: diastolic murmur, gallop, rubs, systolic murmur - GI/Abdominal GI/Abdominal exam: Present: normal bowel sounds, soft. Absent: distended, tenderness - Extremities Exam Extremities exam: Present: normal capillary refill, normal inspection, warm, radial pulses palpable and symmetrical. Absent: calf tenderness, cyanotic, pedal edema - Neurological Exam Neurological exam: Present: alert, motor sensory deficit, oriented X3, no focal deficits. Absent: altered, CN II-XII intact, facial droop, speech deficit - Skin Skin exam: Present: dry, intact, normal color, warm. Absent: rash Internal Medicine: Result - Labs CBC & Chem 7: 04/01/17 04:49 04/01/17 04:49 Labs: Short CBC 04/01/17 Range/Units 04:49 WBC 6.7 (4.3-11.1) K/mcL Hgb 14.9 (12.9-16.9) g/dL Hct 45.0 (37.5-50.1) % Plt Count 224 (140-400) K/mcL Neutrophils # 3.9 (1.6-8.9) K/mcL BMP 04/01/17 04:49 Sodium 139 Potassium 4.1 Chloride 103 Carbon Dioxide 23 BUN 19 Creatinine 1.10 Glucose 110 H Calcium 9.0 Liver Function 04/01/17 Range/Units 04:49 Total Bilirubin 1.2 (0.2-1.2) mg/dL AST 17 (5-34) Units/L ALT 20 (0-55) Units/L Alkaline Phosphatase 53 (38-126) Units/L Albumin 3.5 (3.5-5.0) g/dL - ABG Interpretation ABG results: PT/INR, D-dimer PT 10.9 Seconds (9.4-12.1) 03/31/17 01:19 - Impressions Impressions Cervical Spine MRI 03/31/17 15:06 IMPRESSION: Multilevel degenerative disc disease throughout the cervical spine. See above for details of each level D/ / Alejandro Tejada / Alejandro Tejada Interpreting Provider: Alejandro Tejada Consult Discharge Plan - Plan Additional Instructions: Please follow-up with neurology as scheduled. Please follow-up with her primary care provider. Please take your medications as directed. Return to your normal activities as tolerated Return to your normal diet as tolerated Return to the emergency department as needed for any other problems or concerns , or if her symptoms return or worsen Referrals: Erica Martinez MD [Partnered Physician] - 04/13/17 1:00 pm Jeannette Wong CNP [Primary Care Provider] - 04/11/17 8:00 am
== END 2017-04-01 16:40 | disposition home or self-care (01) ==
LOC: EMEROO 11:26 → 3BNU 11:26
PROVIDERS: ADMIT Registered Nurse; ATTEND Registered Nurse